=== PATIENT | male | born 1945 | race Two or more races ===

== ENCOUNTER → 2018-06-16 | Outpatient (CLI) | payer MEDICARE, OTHER ==
[~2018-06-16] MED LIST: ALBUTEROL SULFATE 0.083% NEB 2.5 MG/3 ML AMPUL NEB ONE
--- NOTE | 2018-06-17 10:55 | Pulmonary Function Test ---
Pulmonary Function Test Date of Procedure:: 06/17/18 INDICATION:: Cough/dyspnea Referring Provider: Dr. Ovi Blancas Back Digger Operator: Sofie Woods DEVELOPMENT ANALYST, BRUSH CLEANER - Report Spirometry: FVC 4.39 L 114% postbronchodilator 5.34 L 139% FEV1 1.33 L 44% postbronchodilator 1.58 L 52% FEV1/FVC % 30 postbronchodilator 29 predicted 78 FEF 25-75% 0.24 L 8% postbronchodilator 0.29 L 10% Impression: Obstructive ventilatory defect. Good response to bronchodilator therapy
== END ==
LOC: RT 13:25
PROVIDERS: ATTEND Internal Medicine
DX: J44.9 Chronic obstructive pulmonary disease, unspecified (principal)
CPT/HCPCS: 94060; A9270

== ENCOUNTER 2018-08-19 05:21 | Day surgery (SDC) | payer MEDICARE, OTHER ==
--- NOTE | 2018-08-12 10:06 | RADIOLOGY REPORT (SQ) ---
EXAM DESCRIPTION: CHEST PA/LATERAL COMPLETED DATE/TIME: 08/12/2018 9:49 am REASON FOR STUDY: PRE-OP COMPARISON: None. EXAM PARAMETERS: NUMBER OF VIEWS: two views TECHNIQUE: Digital Frontal and Lateral radiographic views of the chest acquired. RADIATION DOSE: NA LIMITATIONS: none FINDINGS: LUNGS AND PLEURA: No opacities, masses or pneumothorax. No pleural effusion. MEDIASTINUM AND HILAR STRUCTURES: No masses or contour abnormalities. HEART AND VASCULAR STRUCTURES: Heart normal size. No evidence for failure. BONES: No acute findings. HARDWARE: None in the chest. OTHER: No other significant finding. IMPRESSION: NO SIGNIFICANT RADIOGRAPHIC FINDING IN THE CHEST. TECHNICAL DOCUMENTATION: JOB ID: [id number] [employer]- All Rights Reserved Reading location - IP/workstation name: [email or web address]
[2018-08-12 10:14] LABS: HEMATOCRIT 46.3 % (37.9-51.0); HEMOGLOBIN 16.3 g/dL (13.5-17.0); MEAN CORPUSCULAR HEMOGLOBIN 33.4 pg (27.0-33.4); MEAN CORPUSCULAR HGB CONC 35.2 g/dL (32.0-36.0); MEAN CORPUSCULAR VOLUME 95 fl (80-97); PLATELET COUNT 205 10^3/uL (150-450); RED BLOOD COUNT 4.88 10^6/uL (4.35-5.55); RED CELL DISTRIBUTION WIDTH 13.8 % (11.5-14.0); WHITE BLOOD COUNT 9.1 10^3/uL (4.0-10.5)
[2018-08-12 10:46] LABS: ANION GAP 8 (5-19); BLOOD UREA NITROGEN 10 mg/dL (7-20); CALCIUM 9.8 mg/dL (8.4-10.2); CARBON DIOXIDE 29 mmol/L (22-30); CHLORIDE 104 mmol/L (98-107); GLUCOSE 100 mg/dL (75-110); POTASSIUM 4.1 mmol/L (3.6-5.0); SODIUM 141.2 mmol/L (137-145)
--- NOTE | 2018-08-12 23:02 | EKG REPORT ---
SEVERITY:- ABNORMAL ECG - ECTPIC ATRIAL RHYTHM : Confirmed by: Sherri Maria MD 12-Aug-2018 23:01:20
[~2018-08-19 05:21] MED LIST changes: +ACETAMINOPHEN 325 MG TABLET PO PRN; -ALBUTEROL SULFATE 0.083% NEB 2.5 MG/3 ML AMPUL NEB ONE; +CEFAZOLIN SODIUM 2 GM in DEXTROSE 5%-WATER 100 ML IV PRN; +LACTATED RINGERS 1000 ML IV PRN; +LIDOCAINE 0.5% INJ-PF (5 MG/ML) 50 ML SDV SUBCUT PRN
[2018-08-19] MEDS ORDERED: ALBUTEROL SULFATE 0.083% NEB 2.5 MG/3 ML AMPUL NEB ONE (05:37)
[2018-08-19] MEDS ORDERED: FENTANYL CITRATE INJ/PF 100 MCG/2 ML AMPUL ONE (06:51)
[2018-08-19] MEDS ORDERED: DEXAMETHASONE SOD PHOSPHATE INJ 4 MG/1 ML VIAL ONE (06:51)
[2018-08-19] MEDS ORDERED: MIDAZOLAM 2 MG/2 ML INJ ONE (06:51)
[2018-08-19] MEDS ORDERED: HYDROMORPHONE HCL INJ/PF 2 MG/ML AMPULE ONE (06:51)
[2018-08-19] MEDS ORDERED: ONDANSETRON HCL INJ/PF 4 MG/2 ML SDV ONE (06:51)
[2018-08-19] MEDS ORDERED: LIDOCAINE 2% INJ-PF (20 MG/ML) 10 ML AMPUL ONE (06:51)
[2018-08-19] MEDS ORDERED: EPHEDRINE SULFATE INJ 50 MG/1 ML AMPULE ONE (06:52)
[2018-08-19] MEDS ORDERED: BUPIVACAINE HCL 0.25 % INJ/PF (2.5 MG/1 ML) 30 ML VIAL ONE (06:52)
[2018-08-19] MEDS ORDERED: PROPOFOL INJ 200 MG/20 ML VIAL IV ONE (06:52)
[2018-08-19] MEDS ORDERED: ACETAMINOPHEN 1,000 MG/100 ML RTUPB IV ONE (06:52)
[2018-08-19] MEDS ORDERED: CEFAZOLIN INJ 1 GM VIAL ONE (07:33)
--- NOTE | 2018-08-19 08:01 | EKG REPORT ---
SEVERITY:- ABNORMAL ECG - SINUS RHYTHM NONSPECIFIC ST-T CHANGES : Confirmed by: Eric Lebron MD 19-Aug-2018 08:01:08
[2018-08-19] MEDS ORDERED: MORPHINE SULFATE 10 MG/ML INJ IV PRN (08:42)
[2018-08-19] MEDS ORDERED: DIPHENHYDRAMINE HCL 50 MG/ML VIAL IV PRN (08:42)
[2018-08-19] MEDS ORDERED: PROMETHAZINE HCL INJ 25 MG/1 ML VIAL IV PRN ×2 (08:42)
[2018-08-19] MEDS ORDERED: OXYCODONE-ACETAMINOPHEN 5-325 MG TABLET PO PRN ×2 (08:42)
[2018-08-19] MEDS ORDERED: MEPERIDINE HCL/PF INJ 25 MG/1 ML DISP.SYRIN IV PRN (08:42)
[2018-08-19] MEDS ORDERED: FENTANYL CITRATE INJ/PF 100 MCG/2 ML AMPUL IV PRN ×3 (08:42)
[2018-08-19] MEDS ORDERED: ONDANSETRON HCL INJ/PF 4 MG/2 ML SDV IV PRN (08:42)
--- NOTE | 2018-08-19 10:31 | Discharge Summary ---
Discharge Summary (SDC) - Discharge Final Diagnosis: Large indirect bilateral inguinal hernias. Date of Surgery: 08/19/18 Discharge Date: 08/19/18 Condition: Stable Treatment or Instructions: Discharge home. Diet as tolerated. Activity: No lifting greater than 10 pounds x 4 weeks. Follow-up with me in 7-10 days. [place] 10/325 mg p.o. every 6 hours as needed for pain. Okay to shower in 48 hours. No tub baths or swimming pools times 2 weeks. Wear supportive underwear at all times, unless showering. Referrals: MARTITA MATUTE MD [Primary Care Provider] - Discharge Diet: As Tolerated Respiratory Treatments at Home: Deep Breathing/Coughing, Incentive Spirometer Discharge Activity: No Lifting Over 10 Pounds Home Care Assistance: None Needed Report the Following to Your Physician Immediately: Shortness of Breath, Nausea, Vomiting, Increase in Pain, Fever over 101 Degrees, Unusual Bleeding, Redness, Swelling, Warmth, Increased Soreness
[2018-08-19] MEDS ORDERED: HYDROCODONE/ACETAMINOPHEN 10-325 MG TABLET PO PRN (10:35)
[2018-08-19] MEDS ORDERED: NEOSTIGMINE METHYLSULFATE 10 MG/10 ML VIAL ONE ×2 (10:55→10:57)
[2018-08-19] MEDS ORDERED: VECURONIUM BROMIDE INJ 10 MG VIAL IV ONE ×2 (10:55→10:57)
[2018-08-19] MEDS ORDERED: SUCCINYLCHOLINE CHLORIDE INJ 200 MG/10 ML VIAL ONE ×2 (10:55→10:57)
[2018-08-19] MEDS ORDERED: KETOROLAC TROMETHAMINE 60 MG/2 ML SDV ONE (10:55)
[2018-08-19] MEDS ORDERED: GLYCOPYRROLATE 1 MG/5 ML SYRINGE ONE ×2 (10:55→10:57)
--- NOTE | 2018-08-19 10:58 | Operative Report ---
Nonrecallable Operative Report DATE OF SURGERY: 08/19/18 PREOPERATIVE DIAGNOSIS: Bilateral inguinal hernias POSTOPERATIVE DIAGNOSIS: Large indirect bilateral inguinal hernias OPERATION: Robot-assisted laparoscopic bilateral inguinal hernia repair with mesh SURGEON: AWA KENDRICK 1ST LINE OUT MAN: ARABELLA JESUS ANESTHESIA: GA TISSUE REMOVED OR ALTERED: None COMPLICATIONS: None apparent ESTIMATED BLOOD LOSS: Minimal PROCEDURE: Drains/implants: Large right and left 3 DMax inguinal hernia mesh. Procedure in detail: After informed consent was obtained, the patient was brought into the operating room and laid in the supine position. The area of the abdomen was prepped and draped in a normal sterile fashion. A supraumbilical incision was created with a 15 blade scalpel. It was deepened using blunt dissection. The linea alba fascia was incised sharply, the abdomen was sharply. The balloon trocar was inserted, and pneumoperitoneum was achieved. 2 8 mm robotic trochars were placed in the right and left lateral abdomen under direct laparoscopic visualization. The robot was then brought over the patient and docked appropriately. I then assumed my position at the surgeon's console. Attention was turned to the right groin. The peritoneum above the inguinal hernia defect was scored using electrocautery. This was done 2-3 cm superior to the defect. A preperitoneal dissection was undertaken using sharp dissection, blunt dissection, and electrocautery. There is a large indirect inguinal hernia present. There was a large lipoma of the cord that was reduced. The hernia sac and lipoma of the cord were freed from the cord structures. This was done with great care, so as not to injure the cord structures. Once this was completed a large right-sided 3 DMax inguinal hernia mesh was placed into the preperitoneal space. It was sutured medially and superiorly. Once it was found to lie in good position, the peritoneum was closed. The peritoneum was sutured closed using 2-0 V lock suture in simple running fashion. Attention was then turned to the left side. The left side, similarly was opened using electrocautery. This was done 2-3 cm superior to the inguinal hernia defect. The preperitoneal dissection was undertaken using sharp dissection, blunt dissection, and electrocautery. There is a large hernia sac present on the left. This was reduced into the abdomen and everted. This was done with great care, so as not to injure the cord structures. Once the hernia sac was completely freed, a large left-sided 3 DMax inguinal hernia mesh was placed into the preperitoneal space. It was situated over the defect. It was sutured medially and superiorly using 2-0 Vicryl suture. Once this was completed, the peritoneum was closed using 2-0 V lock suture in simple running fashion. The hernia sac was incorporated into the closure. Once this was completed the repair was examined. The hernia repairs appeared to be in good order. Once this was completed the robot was undocked, the trochars were removed, and pneumoperitoneum was relieved. The supraumbilical fascia was then closed using 0 Vicryl suture in [id number] fashion. The overlying skin was closed using 4-0 Vicryl Rapide suture in subcuticular fashion. Dressings were placed, and the procedure was concluded. All sponge, instrument, and needle counts were correct x2. Arabella Jesus PA-C was scrubbed and present the entirety of the procedure. She assisted with all portions of the procedure including placement of the trochars, docking of the robot, exchanging of the robotic instruments, insertion of the mesh, closure of the fascia, and closure of the skin.
[2018-08-19] MEDS ORDERED: LORAZEPAM INJ 2 MG/1 ML VIAL ONE (11:40)
[2018-08-19 15:20] VITALS: BP 125/78
== END 2018-08-19 15:45 | disposition home or self-care (01) ==
LOC: OROUT 05:21
PROVIDERS: ATTEND Surgery
DX: K40.20 Bilateral inguinal hernia, without obstruction or gangrene, not specified as recurrent (principal); E11.9 Type 2 diabetes mellitus without complications; Z88.3 Allergy status to other anti-infective agents; I10 Essential (primary) hypertension; M19.90 Unspecified osteoarthritis, unspecified site; J44.9 Chronic obstructive pulmonary disease, unspecified; E78.5 Hyperlipidemia, unspecified; I73.9 Peripheral vascular disease, unspecified; D59.1 Other autoimmune hemolytic anemias; F17.210 Nicotine dependence, cigarettes, uncomplicated; Z79.899 Other long term (current) drug therapy; Z79.51 Long term (current) use of inhaled steroids; Z79.82 Long term (current) use of aspirin; Z79.84 Long term (current) use of oral hypoglycemic drugs
CPT/HCPCS: 49650; S2900; 36415; 71046; 80048; 82962; 840; 85027; 86850; 86900; 86901; 93005; 93010; 94640; C1781; J0131; J0330; J0690; J1100; J1170; J1885; J2060; J2250; J2405; J2704; J3010; J3490